=== PATIENT | male | born 1925 | race Caucasian/White ===

== ENCOUNTER 2017-03-30 14:18 | Emergency (ER) | payer MEDICARE, OTHER ==
[~2017-03-30] VITALS: Ht 172.7 cm; Wt 81.2 kg
[~2017-03-30 14:18] MED LIST: AMLO5TAB2 PO; CALC500T53 PO; CHOL200047 PO; DOCU250C2 PO; GLY/85CR2 TP; IPRA30SP2 NS; ISOS30TA4 PO; LEVO25TA5 PO; PANT40TA3 PO; QUET25TA73 PO; WARF2TAB7 PO
[2017-03-30 14:26] VITALS: BP 135/42; PULSE 63; RESP 16; O2SAT 99
--- NOTE | 2017-03-30 15:35 | ED.REPORT ---
HPI-General Illness Date of Service March 30, 2017 ED Provider: Matthew Steinberg PA-C Armond is an 89-year-old male with an extensive medical history sent from dialysis clinic out of concern for an expanding hematoma on his left flank. Small bruise was first noted 3 days ago, and has doubled in size since yesterday. Patient complains of no other symptoms including chest pain, palpitations, shortness of breath, coughing, wheezing, abdominal pain, vomiting , diarrhea, fever. He can recall no trauma. Patient is on Coumadin for atrial fibrillation. Nursing Notes Stated Complaint: LEFT SIDE HEMATOMA SENT FROM DIALYSIS Chief Complaint: General Complaint Nursing Notes Reviewed: Yes Allergies: Coded Allergies: Sulfa (Sulfonamide Antibiotics) (Verified Allergy, Severe, Rash, 04/24/16) amoxicillin (Verified Allergy, Severe, HIVES, 04/24/16) ceftriaxone sodium (Verified Allergy, Severe, Rash, 04/24/16) trimethoprim (Verified Allergy, Severe, RASH, 04/24/16) adhesive tape (Verified Allergy, Unknown, UNKNOWN, 04/24/16) clavulanic acid (Verified Allergy, Unknown, Rash, 04/24/16) doxycycline (Verified Allergy, Unknown, UNKNOWN, 04/24/16) vancomycin (Verified Allergy, Unknown, Red Man syndrome, 04/24/16) venom-honey bee (Verified Allergy, Unknown, swelling, 04/24/16) Scheduled Amlodipine (Amlodipine) 5 Mg Tablet 5 MG PO DAILY take after dialysis Calcium Carbonate (Calcium Carbonate) 200 Mg Tab.chew 200 MG PO TIDWM Cholecalciferol (Vitamin D3) (Vitamin D3) 2,000 Unit Capsule 1,000 UNIT PO BID Docusate Sodium (Docusate Sodium) 250 Mg Capsule 250 MG PO BID Isosorbide [place] ER (Isosorbide MN ER) 30 Mg Tab.er.24h 30 MG PO DAILY Levothyroxine (Levothyroxine) 25 Mcg Tablet 12.5 MCG PO DAILY Pantoprazole DR (Pantoprazole DR) 40 Mg Tablet.dr 40 MG PO 0630 Warfarin Sodium (Warfarin Sodium) 2 Mg Tablet 2 MG PO DAILY Scheduled PRN Ipratropium [place] (Atrovent 0.03% Nasal) 30 Ml [place] 2 SPRAY NS TID PRN PRN PRN Quetiapine Fumarate (Quetiapine Fumarate) 25 Mg Tablet 25 MG PO HS PRN PRN nocturnal agitation Miscellaneous Medications Gly/Dimeth/Gunderson/Stearyl Alc (Cetaphil Therapeutic Hand Crm) 85 Gm Cream..g. Unknown Dose TP General Time Seen by MD: 15:25 Chief Complaint Other (hematoma) Past Medical History Past Medical History Stroke on 06/24/16 ESRD (Dialysis since 2009) Staph infection (unknown source) hospitalized May 2015 at [place] Aortic valve insufficiency Arthritis Basal cell carcinoma of the skin of the lower extremity, status post Mohs surgery Coronary artery disease History of atrial fibrillation, paroxysmal History of BPH History of COPD History of CVA History of endocarditis History of gout History of hyperlipidemia History of pulmonary hypertension Mitral insufficiency Status post CT in October 2009 osteoarthritis Reports: Congestive heart failure, Hypertension Reports: Atrial fibrillation Past Surgical History Hernia Repair Porcine Aortic Valve Replacement Mitral valve annuloplasty Bilateral hip replacements ([facility] in [place]) TURP tunnel cath right upper chest incision and drainage of large right thigh hematoma on 04/25/2016 Reports: Cataract surgery Smoking History Former Smoker Social History Alcohol Use: Denies alcohol use Drug Use: Denies drug use Other Social History: Good social support, , Local resident Ambulatory Status Independent Physical Exam General: Well appearing, well developed, well nourished, no acute distress. Elderly gentleman reclining on the gurney. Head: Atraumatic, normocephalic. Eyes: No scleral icterus or injection. No discharge. Vision grossly intact. ENT: Voice clear, hearing grossly intact. Respiratory: Regular rate and rhythm. Breath sounds present, clear to auscultation and equal bilaterally. No respiratory distress. No increased work of breathing, speaks in complete sentences. Cardiovascular: Irregularly irregular rate and rhythm, grade 3/6 systolic murmur. No pedal edema. Gastrointestinal: Abdomen flat and non-tender without guarding or rebound. Bowel sounds normoactive. Skin: Approximately 5 cm hematoma on the left flank roughly over the iliac crest. By ink markings placed several hours ago, not expanded. Neurological: Grossly nonfocal. Psychological: Alert and oriented. Speech appropriate, linear and logical. Behavior appropriate. Vital Signs Vital Signs Date Time Temp Pulse Resp B/P Pulse Ox O2 Delivery O2 Flow Rate FiO2 03/30/17 16:41 36.4 63 16 135/42 99 Room Air 03/30/17 14:26 36.4 63 16 135/42 99 Room Air Initial VS: Vital signs normal Interpretation & Diagnostics Lab Results Interpretation Result Diagram: 03/30/17 1555 Test 03/30/17 15:55 White Blood Count 8.6th/mm3 (3.8-10.1) Red Blood Count 3.57mil/mm3 (4.40-5.80) Hemoglobin 11.4g/dL (13.8-17.2) Hematocrit 34.5% (41.0-50.0) Mean Corpuscular Volume 96.6fL (81-100) Mean Corpuscular Hemoglobin 31.9pg (27.0-35.0) Mean Corpuscular Hemoglobin Concent 33.0% (32.0-37.0) Red Cell Distribution Width 15.7% (12.3-15.4) Platelet Count 217bil/L (150-400) Neutrophils (%) (Auto) 71.6% (40-74) Lymphocytes (%) (Auto) 10.4% (14-46) Monocytes (%) (Auto) 14.8% (4-12) Eosinophils (%) (Auto) 0% (0-5) Basophils (%) (Auto) 2.3% (0-3) Re-Eval/Medical Decision Med Decision/Clinical Course 89-year-old male dialysis patient brought have concern for a spreading hematoma on his left flank. He can recall no trauma. Physical examination is benign with a nontender abdomen, normal vital signs. Review of records indicates he is mildly anemic but at baseline. INR is at the low end of therapeutic. Platelets are normal. I discussed this case with Dr. Adam. At this point I believe the patient is stable and safe to be discharged home. I advised discontinuing Coumadin for the weekend and following up with primary care on Sunday to reassess. Provided emergency return precautions. Both the patient and his caregiver verbalize understanding of and consented to the plan. Discharge & Departure Primary Impression: Hematoma of right lower extremity Encounter type: initial encounter Qualified Code: S80.11XA - Contusion of right lower leg, initial encounter Disposition: Home Discharge Condition All VS Reviewed: Yes Additional Instructions: Evaluation in the emergency department for a hematoma consists of history, physical, review of records, and blood work. I do not believe this hematoma is caused by an immediately dangerous condition as your Coumadin level is within the therapeutic window, and you are not more anemic than usual. Your platelet level is normal. Stop taking your warfarin (Coumadin) for the weekend. Please follow-up with your primary care provider on Sunday to reassess the hematoma and your Coumadin level. Return to emergency department for any new or worsening symptoms including dizziness, racing heart, bloody or tarry stools or uncontrolled bleeding. Referrals: Edgardo Bennett MD (PCP) EDSupervising Provider for APC: Lamberto Adam MD copies to: Edgardo Bennett MD, Seth PA-C March 30, 2017 15:35
[2017-03-30 16:13] LABS: BASOPHILS % (AUTO) 2.3 % (0-3); EOSINOPHILS % (AUTO) 0 % (0-5); MONOCYTES % (AUTO) 14.8 % (4-12); Mean Corpuscular Hemoglobin 31.9 pg (27.0-35.0); Mean Corpuscular Volume 96.6 fL (81-100); NEUTROPHILS % (AUTO) 71.6 % (40-74); Platelet Count 217 bil/L (150-400)
[2017-03-30 16:41] VITALS: BP 135/42; PULSE 63; RESP 16; O2SAT 99
== END 2017-03-30 16:43 | disposition home or self-care (01) ==
LOC: SED 14:18
DX: S80.11XA Contusion of right lower leg, initial encounter (principal); Y84.8 Other medical procedures as the cause of abnormal reaction of the patient, or of later complication, without mention of misadventure at the time of the procedure; Y93.89 Activity, other specified; Y92.9 Unspecified place or not applicable; Y99.8 Other external cause status; I13.0 Hypertensive heart and chronic kidney disease with heart failure and stage 1 through stage 4 chronic kidney disease, or unspecified chronic kidney disease; I50.9 Heart failure, unspecified; N18.6 End stage renal disease; I25.2 Old myocardial infarction; I25.10 Atherosclerotic heart disease of native coronary artery without angina pectoris; Z87.891 Personal history of nicotine dependence; C44.91 Basal cell carcinoma of skin, unspecified; Z99.2 Dependence on renal dialysis; Z79.01 Long term (current) use of anticoagulants; Z79.899 Other long term (current) drug therapy; Z88.1 Allergy status to other antibiotic agents; Z88.2 Allergy status to sulfonamides; Z88.8 Allergy status to other drugs, medicaments and biological substances; Z91.030 Bee allergy status

== ENCOUNTER → 2017-07-12 | Day surgery (SDC) | payer MEDICARE, OTHER ==
[~2017-07-12] VITALS: Ht 175.3 cm; Wt 81.0 kg
[~2017-07-12] MED LIST changes: +Heparin 10,000 Unit/1,000 mL NS Premix IV ONE; -QUET25TA73 PO
[2017-07-12 09:30] VITALS: BP 152/37; PULSE 75; RESP 18; O2SAT 97
--- NOTE | 2017-07-12 14:20 | NUR ---
Tunnel cath replacement Pt had tunnel cath replaced in lab clerk with no sedation, pt then transferred immediately to kidney center for dialysis, Pt alert and oriented at time of discharge, tunnel cath site looked CDI, no signs of bleeding. Collar Folder Operator stated verbal understanding of discharge instructions. Pt left [facility] with personal belongings at approximately 1400.
--- NOTE | 2017-07-12 14:37 | DRSVH ---
PROCEDURE: CV REPLACE CATH TUNLD 1. Sonographic guidance for venous access. 2. Right internal jugular vein tunneled hemodialysis catheter placement. 3. Fluoroscopic guidance for catheter placement. INDICATIONS: DEFECTIVE TECHNIQUE: The indications, alternatives, benefits, risks, and complications of the procedure were e xplained to the patient and any family members present. Informed written consent was obtained and pl aced in the chart. The patient was brought to the angiography suite, and conscious sedation was admi nistered intravenously by [facility] staff, while continuous cardiorespiratory monitoring was pe rformed. Maximum sterile barrier technique was employed per standard protocol, including hand hygiene, cap, ma sk, sterile gown and gloves, and 2% chlorhexidine. 1% lidocaine was used for local anaesthesia. Under sonographic guidance, the right internal jugular vein was accessed with a Micropuncture set. An 0.035J wire was advanced into the vena cava. Subcuta neous tunnel was created within the right anterior chest wall, through which a 14.5 Vietnamese double lum en tunneled hemodialysis catheter was advanced. Following sequential venotomy tract dilation, the ca theter was advanced through the peel-away sheath and the tip was placed at the cavoatrial junction. Peel-away sheath was removed. Adequate flow was obtained through both lumens of the catheter. The v enotomy was closed with Vicryl, and the catheter was fastened to the sking with Ticron. Both lumens were flushed with heparinized saline. The patient tolerated the procedure without difficulty and was in stable condition at the conclusion of the procedure. COMPARISON: None. FINDINGS: The right internal jugular vein is patent by ultrasound. Fluoroscopic imaging demonstrates tip of th e catheter at the cavoatrial junction. IMPRESSION: Right internal jugular vein tunneled hemodialysis catheter placement using sonographic and fluoroscop ic guidance. Dictated by: Bibiana Vasquez M.D. on 07/12/2017 at 14:34 Approved by: Bibiana Vasquez M.D. on 07/12/2017 at 14:36
== END | disposition home or self-care (01) ==
LOC: SOUO 00:32
PROVIDERS: ATTEND Radiology Vascular & Interventional Radiology
DX: T82.41XA Breakdown (mechanical) of vascular dialysis catheter, initial encounter (principal); Y82.8 Other medical devices associated with adverse incidents; N18.6 End stage renal disease; I48.91 Unspecified atrial fibrillation; E03.9 Hypothyroidism, unspecified; I25.10 Atherosclerotic heart disease of native coronary artery without angina pectoris; E11.40 Type 2 diabetes mellitus with diabetic neuropathy, unspecified; J44.9 Chronic obstructive pulmonary disease, unspecified; Z79.01 Long term (current) use of anticoagulants; Z86.73 Personal history of transient ischemic attack (TIA), and cerebral infarction without residual deficits; Z95.3 Presence of xenogenic heart valve; I27.2 Other secondary pulmonary hypertension
CPT/HCPCS: 36581; 77001; C1750; C1769; J1644

== ENCOUNTER 2017-08-10 09:04 | Emergency (ER) | payer MEDICARE, OTHER ==
[~2017-08-10] VITALS: Ht 177.8 cm; Wt 89.2 kg
[~2017-08-10 09:04] MED LIST changes: -Heparin 10,000 Unit/1,000 mL NS Premix IV ONE
[2017-08-10 09:07] VITALS: BP 158/55; PULSE 85; RESP 16; O2SAT 99
--- NOTE | 2017-08-10 09:14 | ED.REPORT ---
HPI-Extremity Problem Upper Date of Service Aug 10, 2017 ED Provider: Lamberto Adam MD Patient is an 89 year old male with a history of CVA on Warfarin, COPD, CAD, hypertension and ESRD who presents to the ED with his caregiver complaining of right arm pain. Associated symptoms include bruising, swelling and erythema. He denies fevers, chills, vomiting, diarrhea or changes in mental status. The caregiver reports that the patient's other caregiver noted a bruise under his right arm three days ago and when he saw the patient this morning, it was much worse and he brought the patient to the ED. Nursing Notes Stated Complaint: RT ARM SWOLLEN/BRUISED Chief Complaint: Extremity Trauma Nursing Notes Reviewed: Yes Allergies: Coded Allergies: Sulfa (Sulfonamide Antibiotics) (Verified Allergy, Severe, Rash, 08/10/17) amoxicillin (Verified Allergy, Severe, HIVES, 08/10/17) ceftriaxone sodium (Verified Allergy, Severe, Rash, 08/10/17) trimethoprim (Verified Allergy, Severe, RASH, 08/10/17) adhesive tape (Verified Allergy, Unknown, UNKNOWN, 08/10/17) clavulanic acid (Verified Allergy, Unknown, Rash, 08/10/17) doxycycline (Verified Allergy, Unknown, UNKNOWN, 08/10/17) vancomycin (Verified Allergy, Unknown, Red Man syndrome, 08/10/17) venom-honey bee (Verified Allergy, Unknown, swelling, 08/10/17) Scheduled Amlodipine (Amlodipine) 5 Mg Tablet 5 MG PO DAILY take after dialysis Calcium Carbonate (Calcium Carbonate) 200 Mg Tab.chew 200 MG PO TIDWM Cholecalciferol (Vitamin D3) (Vitamin D3) 2,000 Unit Capsule 1,000 UNIT PO BID Docusate Sodium (Docusate Sodium) 250 Mg Capsule 250 MG PO BID Isosorbide [place] ER (Isosorbide MN ER) 30 Mg Tab.er.24h 30 MG PO DAILY Levothyroxine (Levothyroxine) 25 Mcg Tablet 12.5 MCG PO DAILY Pantoprazole DR (Pantoprazole DR) 40 Mg Tablet.dr 40 MG PO 0630 Warfarin Sodium (Warfarin Sodium) 2 Mg Tablet 2 MG PO DAILY Scheduled PRN Ipratropium [place] (Atrovent 0.03% Nasal) 30 Ml [place] 2 SPRAY NS TID PRN PRN PRN Miscellaneous Medications Gly/Dimeth/Gunderson/Stearyl Alc (Cetaphil Therapeutic Hand Crm) 85 Gm Cream..g. 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, Graphic Design Assistant Arrived By: Walk-in Onset Occurred: 3 days ago Symptom Duration: Since onset Location: : Arm right Quality: Painful Severity: Current: Moderate Exacerbated by: Movement Recent Healthcare: Recent doctor visit Similar Sx Previous: No Past Medical History Past Medical History Stroke on 06/24/16 ESRD (Dialysis since 2009) Staph infection (unknown source) hospitalized May 2015 at [place] Aortic valve insufficiency Arthritis Basal cell carcinoma of the skin of the lower extremity, status post Mohs surgery BPH endocarditis gout Mitral insufficiency Status post MA in October 2009 osteoarthritis Reports: COPD, Congestive heart failure, Coronary artery disease, Hyperlipidemia , Hypertension, Stroke Reports: Atrial fibrillation Past Surgical History Hernia Repair Porcine Aortic Valve Replacement Mitral valve annuloplasty Bilateral hip replacements ([facility] in [place]) TURP tunnel cath right upper chest incision and drainage of large right thigh hematoma on 04/25/2016 Reports: Cataract surgery Smoking History Former Smoker Social History Alcohol Use: Denies alcohol use Drug Use: Denies drug use Other Social History: Good social support, , Local resident Ambulatory Status Independent Review of Systems Constitutional: Denies: Chills, Fever Musculoskeletal: Reports: Extremity pain, Extremity swelling Skin: Reports Bruising Neurologic: Denies: Change LOC, Confusion Complete sys rev & neg: except as marked. GI: Denies: Diarrhea, Vomiting Physical Exam Initial Vital Signs Vital Signs (First) Date Time Temp Pulse Resp B/P Pulse Ox O2 Delivery O2 Flow Rate FiO2 08/10/17 09:07 36.4 85 16 158/55 99 Room Air Initial VS: Reviewed General/Constitutional: Awake, Alert Respiratory / Chest: Atraumatic, Breath sounds NL, Breath sounds = bilat, No respiratory distress Cardiovascular: Heart rate NL, Regular rhythm, Heart sounds NL UPPER EXTREMITIES: hematoma extending from the right forearm up to the axilla primarly on the medial aspect of the arm Skin: Warm, Dry Head / Eyes: Atraumatic, Normocephalic Interpretation & Diagnostics Lab Results Interpretation Result Diagram: 08/10/17 0824 08/10/17 0824 Test 08/10/17 08:24 White Blood Count 11.2th/mm3 (3.8-10.1) Red Blood Count 3.09mil/mm3 (4.40-5.80) Hemoglobin 9.6g/dL (13.8-17.2) Hematocrit 29.7% (41.0-50.0) Mean Corpuscular Volume 96.1fL (81-100) Mean Corpuscular Hemoglobin 31.1pg (27.0-35.0) Mean Corpuscular Hemoglobin Concent 32.3% (32.0-37.0) Red Cell Distribution Width 15.1% (12.3-15.4) Platelet Count 221bil/L (150-400) Neutrophils (%) (Auto) 81.0% (40-74) Lymphocytes (%) (Auto) 6.5% (14-46) Monocytes (%) (Auto) 10.5% (4-12) Eosinophils (%) (Auto) 0% (0-5) Basophils (%) (Auto) 1.7% (0-3) Prothrombin Time 26.8sec (8.1-12.5) Prothromb Time International Ratio 2.46ratio Sodium Level 140mEq/L (134-144) Potassium Level 4.3mEq/L (3.5-5.2) Chloride Level 97mEq/L (97-108) Carbon Dioxide Level 24mmol/L (18-29) Blood Urea Nitrogen 42mg/dL (8-27) Creatinine 6.78mg/dL (0.76-1.27) Estimat Glomerular Filtration Rate 8mL/min (>59) Glucose Level 180mg/dL (60-99) Calcium Level 8.4mg/dL (8.5-10.1) Total Bilirubin 0.5mg/dL (0.0-1.2) Aspartate Amino Transf (AST/SGOT) 10U/L (0-50) Alanine Aminotransferase (ALT/SGPT) 8U/L (0-44) Alkaline Phosphatase 120U/L (25-160) Total Protein 6.5g/dL (6.4-8.4) Albumin 4.1g/dL (3.4-5.0) Re-Eval/Medical Decision Med Decision/Clinical Course This gentleman has a large hematoma on his right upper extremity extending into the axilla. There is no active bleeding. He has a modest anemia and a therapeutic warfarin level. He will be going to dialysis this morning. I do not believe further intervention is required at this time. I recommend moist warm compresses and gentle pressure wrap on the arm and follow up tomorrow morning or rather Sunday morning if symptoms are still worsening. Re-Evaluation/Progress : Time of Eval: 10:25 Re-Evaluation/Progress Note: Discussed INR levels and plan for discharge. Patient understands and agrees to plan. All questions were addressed Counseled Regarding: Diagnosis, Lab results, Need for follow-up, When/why to return to ED Discharge & Departure Impression: Primary Impression: Hematoma Disposition: Home Discharge Condition All VS Reviewed: Yes Condition: Stable Patient Instructions: Hematoma (ED) Additional Instructions: Your hematocrit is low but not to the point of requiring transfusion. Your INR level (warfarin) is pending. I will call Dr. Peralta about this before you are done with dialysis. Go to dialysis now. I recommend warm compresses and for the hematoma, this will take a few weeks to go away completely. Tylenol as needed for pain. Follow-up right away for fever or shortness of breath. Referrals: Yadiel Cruz MD (PCP) Alexandre Attestation Portions of this note were transcribed by Christina Zarate. I, Dr. Adam personally performed the history, physical exam and medical decision-making; I reviewed and confirmed the accuracy of the information in the transcribed note. Signed by: Alexandre Squires, 08/10/17 copies to: Yadiel Cruz MD, Kirk H MD Aug 10, 2017 09:14 Tracy Zarate Aug 10, 2017 09:23
[2017-08-10 09:49] LABS: BASOPHILS % (AUTO) 1.7 % (0-3); EOSINOPHILS % (AUTO) 0 % (0-5); MONOCYTES % (AUTO) 10.5 % (4-12); Mean Corpuscular Hemoglobin 31.1 pg (27.0-35.0); Mean Corpuscular Volume 96.1 fL (81-100); Platelet Count 221 bil/L (150-400)
[2017-08-10 10:22] LABS: INR 2.46 ratio
[2017-08-10 10:39] VITALS: BP 152/58; PULSE 80; RESP 18; O2SAT 99
== END 2017-08-10 10:40 | disposition home or self-care (01) ==
LOC: SED 09:04
DX: S50.11XA Contusion of right forearm, initial encounter (principal); X58.XXXA Exposure to other specified factors, initial encounter; Y92.9 Unspecified place or not applicable; Y93.9 Activity, unspecified; Y99.8 Other external cause status; I10 Essential (primary) hypertension; I50.9 Heart failure, unspecified; N18.9 Chronic kidney disease, unspecified; I25.2 Old myocardial infarction; I25.10 Atherosclerotic heart disease of native coronary artery without angina pectoris; J44.9 Chronic obstructive pulmonary disease, unspecified; E78.5 Hyperlipidemia, unspecified; I48.91 Unspecified atrial fibrillation; Z99.2 Dependence on renal dialysis; Z87.891 Personal history of nicotine dependence; Z86.73 Personal history of transient ischemic attack (TIA), and cerebral infarction without residual deficits; Z79.01 Long term (current) use of anticoagulants; Z88.1 Allergy status to other antibiotic agents; Z88.2 Allergy status to sulfonamides; Z88.8 Allergy status to other drugs, medicaments and biological substances; Z91.030 Bee allergy status

== ENCOUNTER 2017-08-14 08:59 | Emergency (ER) | payer MEDICARE, OTHER ==
[~2017-08-14] VITALS: Ht 175.3 cm; Wt 81.2 kg
[2017-08-14 09:09] VITALS: BP 122/64; PULSE 79; RESP 16; O2SAT 100
--- NOTE | 2017-08-14 09:26 | ED.REPORT ---
HPI-Extremity Problem Upper Date of Service Aug 14, 2017 ED Provider: Jose James DO Patient is an 89 year old male with a history of CVA on Warfarin, COPD, CAD, hypertension and ESRD who presents to the ED with his caregiver complaining of right arm pain. Associated symptoms include bruising, swelling and erythema. He denies fevers, chills, vomiting, diarrhea or changes in mental status. The patient was seen 4 days ago in the ED where his INR levels were normal. The family reports that the swelling has started to decrease since yesterday. Nursing Notes Stated Complaint: ARM PAIN Chief Complaint: Extremity Trauma Nursing Notes Reviewed: Yes Allergies: Coded Allergies: Sulfa (Sulfonamide Antibiotics) (Verified Allergy, Severe, Rash, 08/10/17) amoxicillin (Verified Allergy, Severe, HIVES, 08/10/17) ceftriaxone sodium (Verified Allergy, Severe, Rash, 08/10/17) trimethoprim (Verified Allergy, Severe, RASH, 08/10/17) adhesive tape (Verified Allergy, Unknown, UNKNOWN, 08/10/17) clavulanic acid (Verified Allergy, Unknown, Rash, 08/10/17) doxycycline (Verified Allergy, Unknown, UNKNOWN, 08/10/17) vancomycin (Verified Allergy, Unknown, Red Man syndrome, 08/10/17) venom-honey bee (Verified Allergy, Unknown, swelling, 08/10/17) Scheduled Amlodipine (Amlodipine) 5 Mg Tablet 5 MG PO DAILY take after dialysis Calcium Carbonate (Calcium Carbonate) 200 Mg Tab.chew 200 MG PO TIDWM Cholecalciferol (Vitamin D3) (Vitamin D3) 2,000 Unit Capsule 1,000 UNIT PO BID Docusate Sodium (Docusate Sodium) 250 Mg Capsule 250 MG PO BID Isosorbide MN ER (Isosorbide MN ER) 30 Mg Tab.er.24h 30 MG PO DAILY Levothyroxine (Levothyroxine) 25 Mcg Tablet 12.5 MCG PO DAILY Pantoprazole DR (Pantoprazole DR) 40 Mg Tablet.dr 40 MG PO 0630 Warfarin Sodium (Warfarin Sodium) 2 Mg Tablet 2 MG PO DAILY Scheduled PRN Ipratropium Moon (Atrovent 0.03% Nasal) 30 Ml [place] 2 SPRAY NS TID PRN PRN PRN Miscellaneous Medications Gly/Dimeth/Gunderson/Stearyl Alc (Cetaphil Therapeutic Hand Crm) 85 Gm Cream..g. 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 Symptom Duration: Since onset Location: : Arm right Quality: Painful Severity: Current: Moderate Exacerbated by: Movement Recent Healthcare: Recent doctor visit Similar Sx Previous: Yes Past Medical History Past Medical History Stroke on 06/24/16 ESRD (Dialysis since 2009) Staph infection (unknown source) hospitalized May 2015 at [place] Aortic valve insufficiency Arthritis Basal cell carcinoma of the skin of the lower extremity, status post Mohs surgery BPH endocarditis gout Mitral insufficiency Status post [place] in October 2009 osteoarthritis Reports: COPD, Congestive heart failure, Coronary artery disease, Hyperlipidemia , Hypertension, Stroke Reports: Atrial fibrillation Past Surgical History Hernia Repair Porcine Aortic Valve Replacement Mitral valve annuloplasty Bilateral hip replacements ([facility] in [place]) TURP tunnel cath right upper chest incision and drainage of large right thigh hematoma on 04/25/2016 Reports: Cataract surgery Smoking History Former Smoker Social History Alcohol Use: Denies alcohol use Drug Use: Denies drug use Other Social History: Good social support, , Local resident Ambulatory Status Independent Review of Systems Constitutional: Denies: Chills, Fever Musculoskeletal: Reports: Extremity pain, Extremity swelling Skin: Reports Bruising Neurologic: Denies: Change LOC Complete sys rev & neg: except as marked. GI: Denies: Diarrhea, Vomiting Physical Exam Initial Vital Signs Vital Signs (First) Date Time Temp Pulse Resp B/P Pulse Ox O2 Delivery O2 Flow Rate FiO2 08/14/17 09:09 36.5 79 16 122/64 100 Room Air Initial VS: Reviewed General/Constitutional: Awake, Alert Respiratory / Chest: Atraumatic, Breath sounds NL, Breath sounds = bilat, No respiratory distress Cardiovascular: Heart rate NL, Regular rhythm, Heart sounds NL Upper Extremity / MS: Neurologic intact, Vascular intact 2+ radial pulse range of motion of hand with no reproducable pain swollen, warm and fluctuant area to the right bicep palpable hematoma mild and warm, no erythema diffuse ecchymosis down the right arm Skin: Atraumatic, Color NL, No rash, Warm, Dry Neurologic: Oriented X3, Speech NL Head / Eyes: Atraumatic, Normocephalic Interpretation & Diagnostics Interpretation & Diagnostics: US VENOUS DUPLEX RIGHT UPPER EXTREMITY: No evidence of DVT large 9cm hematoma discussed with US tech Lab Results Interpretation Result Diagram: 08/14/17 1005 08/14/17 1005 Test 08/14/17 10:05 White Blood Count 11.7th/mm3 (3.8-10.1) Red Blood Count 2.90mil/mm3 (4.40-5.80) Hemoglobin 9.0g/dL (13.8-17.2) Hematocrit 27.8% (41.0-50.0) Mean Corpuscular Volume 95.9fL (81-100) Mean Corpuscular Hemoglobin 31.0pg (27.0-35.0) Mean Corpuscular Hemoglobin Concent 32.4% (32.0-37.0) Red Cell Distribution Width 15.0% (12.3-15.4) Platelet Count 242bil/L (150-400) Neutrophils (%) (Auto) 73.6% (40-74) Lymphocytes (%) (Auto) 7.3% (14-46) Monocytes (%) (Auto) 17.0% (4-12) Eosinophils (%) (Auto) 0% (0-5) Basophils (%) (Auto) 1.5% (0-3) Prothrombin Time 27.4sec (8.1-12.5) Prothromb Time International Ratio 2.51ratio Sodium Level 135mEq/L (134-144) Potassium Level 3.7mEq/L (3.5-5.2) Chloride Level 91mEq/L (97-108) Carbon Dioxide Level 24mmol/L (18-29) Blood Urea Nitrogen 33mg/dL (8-27) Creatinine 4.97mg/dL (0.76-1.27) Estimat Glomerular Filtration Rate 12mL/min (>59) Glucose Level 121mg/dL (60-99) Calcium Level 8.4mg/dL (8.5-10.1) Total Bilirubin 0.6mg/dL (0.0-1.2) Aspartate Amino Transf (AST/SGOT) 9U/L (0-50) Alanine Aminotransferase (ALT/SGPT) 9U/L (0-44) Alkaline Phosphatase 122U/L (25-160) Total Protein 6.4g/dL (6.4-8.4) Albumin 4.1g/dL (3.4-5.0) Hold Conte Top Tube Received (Received) Procedures Splint Application - Fx Mgt Time: 12:49 Procedure Performed by: Nurse Precise Anatomic Location: right arm Type of Immobilization: Sling Definitive Fracture Care: Pain control, Sling Post-Procedure / Complications: Cap refill normal, Post splint vascular nl, Post splint neuro nl, Condition improved, Tolerated procedure well, Patient stable Splint Post-Application Eval Extremity Condition: Cap refill < 2 sec, Distal sensation intact, Distal motor Intact, No compartment syndrome Re-Eval/Medical Decision Med Decision/Clinical Course Exam is consistent with a hematoma, no evidence of underlying infection clinically. Ultrasound reveals hematoma without obvious vein thrombosis. Patient's INR is therapeutic. Normal radial pulse. No evidence of compartment syndrome. We'll place in a sling and recommend outpatient follow-up. Re-Evaluation/Progress : Time of Eval: 12:42 Patient Status: Condition improved Re-Evaluation/Progress Note: Discussed ultrasound and lab results. Plan for discharge. Patient understands and agrees to plan. All questions were addressed. Counseled Regarding: Diagnosis, Lab results, Need for follow-up, When/why to return to ED Discharge & Departure Impression: Primary Impression: Hematoma Disposition: Home Discharge Condition All VS Reviewed: Yes Condition: Stable Patient Instructions: Hematoma (ED) Additional Instructions: Your ultrasound and labs are just that you have a hematoma. There was no evidence of a clot in your arm and your INR level was 2.51, hold 1 dose of Coumadin tonight. You can take Tylenol for pain and try to use heat packs to help a hematoma. Follow up with your primary care physician later this week. Return to the emergency department if you develop any new or concerning symptoms including fevers, increasing pain, numbness or worsening symptoms. Referrals: Yadiel Cruz MD (PCP) Scribe Attestation Portions of this note were transcribed by Christina Zarate. I, Dr. Gamaliel Amor personally performed the history, physical exam and medical decision-making; I reviewed and confirmed the accuracy of the information in the transcribed note. Signed by: Alexandre Squires, 08/14/17 copies to: Yadiel Cruz MD, Timothy S DO Aug 14, 2017 09:26 Tracy Zarate Aug 14, 2017 09:49
[2017-08-14 10:27] LABS: BASOPHILS % (AUTO) 1.5 % (0-3); EOSINOPHILS % (AUTO) 0 % (0-5); Mean Corpuscular Volume 95.9 fL (81-100); NEUTROPHILS % (AUTO) 73.6 % (40-74); Platelet Count 242 bil/L (150-400)
[2017-08-14 10:38] LABS: INR 2.51 ratio
[2017-08-14 12:54] VITALS: BP 129/28; PULSE 82; RESP 14; O2SAT 100
--- NOTE | 2017-08-14 14:34 | DRSVH ---
PROCEDURE: US VENOUS ARM DUPLEX UNILATERAL, RIGHT INDICATIONS: swelling TECHNIQUE: Real-time imaging, as well as color and pulse Doppler interrogation, was performed of the right upper extremity deep veins from the inferior neck to the antecubital fossa. COMPARISON: [facility], CR, XR CHEST 1VW (PORTABLE), 07/09/2016, 9:33. FINDINGS: Exam limited by large complex fluid collection within the medial aspect of the right upper arm likely hematoma measuring roughly 9.2 x 5.6 x 4.8 cm. Within these limits, right IJ double-lume n dialysis catheter is present. Tip is not well-seen. There is wall thickening involving the right subclavian vein posteriorly likely related to chronic changes. Otherwise no right upper extremity ve nous thrombus is visualized, although the mid/distal brachial basilic veins are not well visualized s econdary to the presumed soft tissue hematoma. IMPRESSION: 1. Presumed soft tissue hematoma medially within upper arm measuring up to 9.2 cm. 2. 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 Dictated by: Wilman Marquis [facility] Interpreted: Hugo Black MD on 08/14/2017 at 11:48 Approved by: Hugo Black M.D. on 08/14/2017 at 14:32
== END 2017-08-14 12:56 | disposition home or self-care (01) ==
LOC: SED 08:59
DX: S50.11XA Contusion of right forearm, initial encounter (principal); X58.XXXA Exposure to other specified factors, initial encounter; Y93.89 Activity, other specified; Y92.009 Unspecified place in unspecified non-institutional (private) residence as the place of occurrence of the external cause; Y99.8 Other external cause status; I13.2 Hypertensive heart and chronic kidney disease with heart failure and with stage 5 chronic kidney disease, or end stage renal disease; I50.9 Heart failure, unspecified; I25.10 Atherosclerotic heart disease of native coronary artery without angina pectoris; E78.5 Hyperlipidemia, unspecified; N18.6 End stage renal disease; I25.2 Old myocardial infarction; Z86.73 Personal history of transient ischemic attack (TIA), and cerebral infarction without residual deficits; Z87.891 Personal history of nicotine dependence; Z79.01 Long term (current) use of anticoagulants; Z88.0 Allergy status to penicillin; Z88.1 Allergy status to other antibiotic agents; Z88.2 Allergy status to sulfonamides; Z88.8 Allergy status to other drugs, medicaments and biological substances; Z91.030 Bee allergy status